=== PATIENT | male | born 1985 | race Caucasian/White ===

== ENCOUNTER 2018-01-16 23:45 | Emergency (ER) | payer SELFPAY ==
[~2018-01-16] VITALS: Ht 185.4 cm; Wt 77.3 kg
[2018-01-16 23:48] VITALS: Ht 185.4 cm; Wt 77.3 kg
[2018-01-17 00:46] LABS: BASOPHILS 0.6 % (0-2); EOSINOPHILS 4.3 % (0-7); HEMOGLOBIN 13.8 g/dL (13.5-17.5); IMMATURE GRANULOCYTES 0.4 % (0-5); LYMPHOCYTES 36.8 % (15-50); MCH 28.9 pg (26.0-34.0); MCHC 34.5 g/dL (31.0-37.0); MCV 83.9 fL (80.0-100.0); MEAN PLATELET VOLUME 10.5 fL (7.4-10.4); MONOCYTES 6.5 % (2-11); NEUTROPHILS 51.4 % (40-80); PLATELET COUNT 215 10x3/uL (130-400); RBC 4.77 10x6/uL (4.20-6.10); RDW 12.7 % (11.5-14.5); WBC 10.2 10x3/uL (4.8-10.8)
[2018-01-17 01:02] LABS: ALBUMIN 3.6 g/dL (3.4-5.0); ALKALINE PHOSPHATASE 54 U/L (46-116); ALT (SGPT) 22 U/L (10-68); BILIRUBIN - TOTAL 0.37 mg/dL (0.2-1.3); CALC OSMOLALITY 282 mosm/kg (275-300); CALCIUM 8.5 mg/dL (8.5-10.1); CARBON DIOXIDE 28.8 mmol/L (21.0-32.0); CHLORIDE - SERUM 103 mmol/L (98-107); CREATININE - SERUM 1.3 mg/dL (0.6-1.3); GLUCOSE 147 mg/dL (74-106); POTASSIUM - SERUM 3.8 mmol/L (3.5-5.1); PROTEIN - SERUM 6.8 g/dL (6.4-8.2); SODIUM 140 mmol/L (136-145); TROPONIN-I < 0.017 ng/mL (0.000-0.060); UREA NITROGEN 14 mg/dL (7-18); eGFR NON AFRICAN AMERICAN 67 mL/min (90-120)
[2018-01-17] MEDS ORDERED: TORADOL10 MG PO (01:03)
[2018-01-17 01:29] VITALS: BP 110/73
== END 2018-01-17 01:29 | disposition home or self-care (01) ==
LOC: D.ER 23:45
PROVIDERS: Emergency Medicine
DX: R07.89 Other chest pain (principal); K21.9 Gastro-esophageal reflux disease without esophagitis; F17.200 Nicotine dependence, unspecified, uncomplicated

== ENCOUNTER 2018-05-30 18:07 | Emergency (ER) | payer OTHER ==
[~2018-05-30] VITALS: Ht 185.4 cm; Wt 81.8 kg
[~2018-05-30 18:07] MED LIST: TORADOL10 MG PO
[2018-05-30 18:18] VITALS: Ht 185.4 cm; Wt 81.8 kg
[2018-05-30 18:43] LABS: BASOPHILS 0.8 % (0-2); EOSINOPHILS 3.6 % (0-7); HEMATOCRIT 40.7 % (42.0-54.0); HEMOGLOBIN 14.1 g/dL (13.5-17.5); IMMATURE GRANULOCYTES 0.2 % (0-5); LYMPHOCYTES 40.3 % (15-50); MCH 29.2 pg (26.0-34.0); MCHC 34.6 g/dL (31.0-37.0); MCV 84.3 fL (80.0-100.0); MEAN PLATELET VOLUME 10.2 fL (7.4-10.4); MONOCYTES 8.8 % (2-11); NEUTROPHILS 46.3 % (40-80); PLATELET COUNT 241 10x3/uL (130-400); RBC 4.83 10x6/uL (4.20-6.10); RDW 12.9 % (11.5-14.5); WBC 8.7 10x3/uL (4.8-10.8)
[2018-05-30 18:58] LABS: APTT 26.7 SECONDS (22.8-39.4); INR 1.13 (0.85-1.17)
[2018-05-30 19:16] LABS: ALBUMIN 4.3 g/dL (3.4-5.0); ALKALINE PHOSPHATASE 53 U/L (46-116); ALT (SGPT) 19 U/L (10-68); BILIRUBIN - TOTAL 0.61 mg/dL (0.2-1.3); CARBON DIOXIDE 23.7 mmol/L (21.0-32.0); CHLORIDE - SERUM 103 mmol/L (98-107); CKMB 0.4 U/L (0.0-3.6); PRO BNP 48 pg/mL (0-125); PROTEIN - SERUM 7.8 g/dL (6.4-8.2); SODIUM 142 mmol/L (136-145); UREA NITROGEN 1 mg/dL (7-18)
[2018-05-30 19:37] LABS: CALCIUM 9.1 mg/dL (8.5-10.1); CREATINE KINASE 105 UL (21-232); CREATININE - SERUM 1.2 mg/dL (0.6-1.3); eGFR NON AFRICAN AMERICAN 74 mL/min (90-120)
[2018-05-30 19:47] LABS: CALC OSMOLALITY 278 mosm/kg (275-300); GLUCOSE 92 mg/dL (74-106); TROPONIN-I < 0.017 ng/mL (0.000-0.060)
[2018-05-30] MEDS ORDERED: ZPAK PO (20:17)
[2018-05-30] MEDS ORDERED: MUCINEX DM ER1 EAC1 PO (20:17)
[2018-05-30 20:32] VITALS: BP 117/78
== END 2018-05-30 20:47 | disposition home or self-care (01) ==
LOC: D.ER 18:07
PROVIDERS: Emergency Medicine
DX: J06.9 Acute upper respiratory infection, unspecified (principal); F17.200 Nicotine dependence, unspecified, uncomplicated

== ENCOUNTER 2019-03-04 20:41 | Emergency (ER) | payer OTHER ==
[~2019-03-04] VITALS: Ht 185.4 cm; Wt 86.4 kg
[~2019-03-04 20:41] MED LIST changes: +MUCINEX DM ER1 EAC1 PO; +ZPAK PO
[2019-03-04 21:03] VITALS: Ht 185.4 cm; Wt 86.4 kg
[2019-03-04] MEDS ORDERED: CHANTIX 1 MG TAB1 MG PO (21:05)
[2019-03-04] MEDS ORDERED: MUCINEX DM ER1 EAC1 PO (21:39)
[2019-03-04] MEDS ORDERED: CIPRO500 MG PO (21:47)
[2019-03-04 22:32] VITALS: BP 120/78
== END 2019-03-04 22:32 | disposition home or self-care (01) ==
LOC: D.ER 20:41
DX: J06.9 Acute upper respiratory infection, unspecified (principal); R09.81 Nasal congestion; I10 Essential (primary) hypertension; Z72.0 Tobacco use

== ENCOUNTER 2019-07-14 15:45 | Emergency (ER) | payer OTHER ==
[~2019-07-14] VITALS: Ht 185.4 cm; Wt 90.9 kg
[~2019-07-14 15:45] MED LIST changes: +CHANTIX 1 MG TAB1 MG PO; +CIPRO500 MG PO
[2019-07-14 15:52] VITALS: Ht 185.4 cm; Wt 90.9 kg
[2019-07-14 17:40] VITALS: BP 140/88
== END 2019-07-14 17:41 | disposition home or self-care (01) ==
LOC: D.ER 15:45
DX: F07.81 Postconcussional syndrome (principal); S09.90XA Unspecified injury of head, initial encounter; W22.8XXA Striking against or struck by other objects, initial encounter; Y93.9 Activity, unspecified; Y92.9 Unspecified place or not applicable; S00.03XA Contusion of scalp, initial encounter; I10 Essential (primary) hypertension